=== PATIENT | female | born 1945 | race Caucasian/White ===

== ENCOUNTER 2020-11-08 09:45 | Emergency (ER) | payer MEDICARE, OTHER ==
[2020-11-08] MEDS ORDERED: NORVASC 5MG5 MG/TAB PO (10:06)
[2020-11-08] MEDS ORDERED: LEADER OMEPRAZO20 MG PO (10:07)
[2020-11-08] MEDS ORDERED: LEVOXYL0.088 MG PO (10:07)
[2020-11-08] MEDS ORDERED: ZESTRIL10 M1 PO (10:07)
[2020-11-08] MEDS ORDERED: DITROPAN 5MG TAB5 MG PO (10:08)
[2020-11-08] MEDS ORDERED: DITROPAN XL 5MG5 M1 PO (10:08)
[2020-11-08] MEDS ORDERED: PAXIL20 M1 PO (10:08)
[2020-11-08 10:59] VITALS: BP 116/66
== END 2020-11-08 11:20 | disposition home or self-care (01) ==
LOC: ED 09:45
DX: M54.5 Low back pain (principal); I13.10 Hypertensive heart and chronic kidney disease without heart failure, with stage 1 through stage 4 chronic kidney disease, or unspecified chronic kidney disease; N18.30 Chronic kidney disease, stage 3 unspecified; Z86.16 Personal history of COVID-19
CPT/HCPCS: J2360; J3010